=== PATIENT | male | born 1965 | race Caucasian/White ===

== ENCOUNTER 2017-08-03 15:11 | Emergency (ER) | payer OTHER ==
[2017-08-03 15:15] VITALS: BP 125/83; PULSE 72; TEMP 98.3; BMI 39.0
--- NOTE | 2017-08-03 15:19 | PDOC ---
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 pt took nothing for pain Pt on exam: mild tenderness to medial aspect of left Gastrocnemius muscle Pt ordered for: none Pt to proceed to the ED Discharge Disposition - Diagnosis Pain of left calf - Referrals - Patient Instructions - Post Discharge Activity
--- NOTE | 2017-08-03 16:22 | PDOC ---
History of Present Illness - General Chief Complaint: Pain Stated Complaint: LT FOOT PAIN Time Seen by Provider: 08/03/17 15:12 Past History - Past Medical History Allergies/Adverse Reactions: Allergies Allergy/AdvReac Type Severity Reaction Status Date / Time No Known Allergies Allergy Verified 08/03/17 15:16 Home Medications: Ambulatory Orders NK [No Known Home Medication] 08/03/17 COPD: No - Suicide/Smoking/Psychosocial Hx Smoking History: Never smoked Have you smoked in the past 12 months: No Information on smoking cessation initiated: No Hx Alcohol Use: No Drug/Substance Use Hx: No Substance Use Type: None *Physical Exam - Vital Signs Last Vital Signs Temp Pulse Resp BP Pulse Ox 98.3 F 72 16 125/83 100 08/03/17 15:14 08/03/17 15:14 08/03/17 15:14 08/03/17 15:14 08/03/17 15:14 *DC/Admit/Observation/Transfer Diagnosis at time of Disposition: Pain of left calf - Discharge Dispostion Disposition: HOME Condition at time of disposition: Stable Decision to Admit order: No - Referrals Referrals: Jack Rubio MD [Primary Care Provider] - Guero Witt MD [Staff Physician] - - Patient Instructions Printed Discharge Instructions: DI for Calf Muscle Strain Additional Instructions: l tens un msculo en tu pantorrilla. Por favor, use la envoltura Nima para mayor comodidad. Por favor, hiele el justen por intervalos de 20 minutos para ayudar a reducir la hinchazn. l puede cambiar a calentar el sbado. Por favor tome 800 mg de Motrin cada 8 horas para el dolor. Por favor haz un seguimiento con ortopedia esta semana. Se goss proporcionado mike referencia. Regrese al servicio de urgencias si tiene un empeoramiento del dolor, dificultad para caminar, entumecimiento y hormigueo en la extremidad, o si tiene algn cambio en joan sntomas. He strained a muscle in your calf. Please wear the Nima wrap for comfort. Please ice the area for 20 minute intervals to help reduce the swelling. He may switch to heat on Monday. Please take 800 mg of Motrin every 8 hours for pain. Please follow up with orthopedics this week. A referral has been provided. Return to the emergency department if you have worsening pain, increased difficulty walking, numbness and tingling to the extremity, or have any changes in your symptoms. Print Language: [id number] - Post Discharge Activity Forms/Work/School Notes: Back to Work
[2017-08-03] MEDS ORDERED: IBUPROFEN 400 MG TABLET (FP) PO ONE ×2 (16:36→16:37)
== END 2017-08-03 16:39 | disposition home or self-care (01) ==
LOC: JERFT 15:11
DX: S86.112A Strain of other muscle(s) and tendon(s) of posterior muscle group at lower leg level, left leg, initial encounter (principal); X50.0XXA Overexertion from strenuous movement or load, initial encounter; Y93.89 Activity, other specified; Y92.89 Other specified places as the place of occurrence of the external cause; Y99.8 Other external cause status
CPT/HCPCS: 99281-25